=== PATIENT | female | born 1950 | race Caucasian/White ===

== ENCOUNTER 2021-05-09 07:22 | Day surgery (SDC) | payer OTHER ==
[~2021-05-09] VITALS: Ht 175.3 cm; Wt 63.6 kg
[2021-05-09] MEDS ORDERED: FentaNYL CITRATE PF 100 MCG/2 ML VIAL ONE (08:05)
[2021-05-09] MEDS ORDERED: MIDAZOLAM HCL 5 MG/ML VIAL ONE (08:05)
[2021-05-09 08:14] LABS: GLUCOMETER DEV NAME(LOC) SDS.; GLUCOSE,POINT OF CARE 121 MG/DL (70-110)
[2021-05-09] MEDS ORDERED: SODIUM CHLORIDE 0.9% 1,000 ML IV ONE (08:15)
[2021-05-09] MEDS ORDERED: BACL20TA PO (08:18)
[2021-05-09] MEDS ORDERED: FOLI-74 PO (08:18)
[2021-05-09] MEDS ORDERED: CLON-465 PO (08:19)
[2021-05-09] MEDS ORDERED: HYDR25TA82 PO (08:29)
[2021-05-09] MEDS ORDERED: METF-911 PO (08:31)
[2021-05-09] MEDS ORDERED: THYR60TA35 PO (08:32)
[2021-05-09] MEDS ORDERED: SENN8.6T20 PO (08:34)
[2021-05-09] MEDS ORDERED: CETI-193 PO (08:35)
[2021-05-09] MEDS ORDERED: CETI-450 PO (08:36)
[2021-05-09] MEDS ORDERED: OXYGEN THERAPY IH SCH (20:00)
== END 2021-05-09 12:20 | disposition home or self-care (01) ==
LOC: SURGERY 07:22
PROVIDERS: ATTEND Internal Medicine Critical Care Medicine
DX: J38.4 Edema of larynx (principal); L92.8 Other granulomatous disorders of the skin and subcutaneous tissue; E06.3 Autoimmune thyroiditis; Z98.890 Other specified postprocedural states; Z87.01 Personal history of pneumonia (recurrent)
CPT/HCPCS: 31623; 31624; 71045; 82962; 87015; 87070; 87101; 87205; 87206; 87220; 88108; 88184; 88185; 88312; J2250; J3010; 87077; 87186